=== PATIENT | male | born 1970 | race Caucasian/White ===

== ENCOUNTER 2023-04-27 07:14 | Inpatient (IN) | payer BC ==
[~2023-04-27] VITALS: Ht 185.4 cm; Wt 69.9 kg
--- NOTE | 2023-04-27 07:14 | NUR ---
Patient received in room 6; evaluated by MD immediately upon arrival. Patient placed on gurney, awaiting orders.
--- NOTE | 2023-04-27 07:24 | NUR ---
EKG DONE AT RN REQUEST DUE TO PT CHIEF COMPLAINT OF RAPID HEART RATE AND PAST HX OF A FIB
[2023-04-27] MEDS ORDERED: ASPIRIN 325 MG TABLET PO ONE (07:30)
[2023-04-27 07:39] VITALS: BP_SYST 112
[2023-04-27] MEDS ORDERED: APIXABAN 2.5 MG TABLET PO ONE (07:45)
[2023-04-27 07:48] LABS: BASOPHILS % (AUTO) 0.7 % (0.0-2.0); EOSINOPHILS # (AUTO) 0.2 K/uL (0.0-0.4); EOSINOPHILS % (AUTO) 3.2 % (0.0-4.0); HEMATOCRIT 43.2 % (36-54); HEMOGLOBIN 14.5 g/dL (14.0-18.0); LYMPHOCYTES % (AUTO) 16.7 % (20.5-51.5); MEAN CORPUSCULAR HEMOGLOBIN 31 pg (27-31); MEAN CORPUSCULAR HGB CONC 34 % (32-36); MEAN CORPUSCULAR VOLUME 92 fL (79.0-98.0); MONOCYTES # (AUTO) 0.5 K/uL (0.0-1.0); MONOCYTES % (AUTO) 8.6 % (1.7-9.3); NEUTROPHILS # (AUTO) 4.4 K/uL (1.8-7.7); NEUTROPHILS % (AUTO) 70.8 % (40.0-70.0); PLATELET COUNT (AUTO) 196 K/uL (130-430); RED BLOOD CELL COUNT(AUTO) 4.72 MIL/uL (4.2-6.2); RED CELL DISTRIBUTION WIDTH 13.6 % (9.0-15.0); WHITE BLOOD COUNT (AUTO) 6.2 K/uL (4.8-10.8)
[2023-04-27 08:00] LABS: CALCIUM 8.3 mg/dL (8.4-11.0); CREATININE 0.92 mg/dL (0.55-1.30)
[2023-04-27 08:05] LABS: TOTAL BILIRUBIN 0.5 mg/dL (0.0-1.0)
--- NOTE | 2023-04-27 09:00 | NUR ---
Patient calm and pleasant in conversation, patient concerned about continued AFIB activity; having had Afib for the last 5 yuears, he stated that although Afib under 100 BPM, it contines to disturb him as it is going from 60's to 90's at this time. Patient advised that he has recieved meds and as he is being admitted, Cadiologist will be here to see him after admission.
--- NOTE | 2023-04-27 09:42 | NUR ---
Admit bed requested Patient will be admitted to care of . Admitted to TELEMETRY unit. Diagnosis ATRIL FIBRILLATION Inpatient (Yes or No) YES Observation (Yes or No) NO Orientation concerns or request close to nursing station (Yes or No) NO Covid Status N/A On vent or bipap NO Isolation requirements NONE Needs a sitter NO From Home (Yes or if No enter name of facility) YES Requires Dialysis (Yes or No) NO Med Rec Completed (Yes of No) PENDING
--- NOTE | 2023-04-27 10:09 | NUR ---
COVID NASAL SWAB COLLECTED AT REQUEST OF NOMAN
[2023-04-27 10:31] LABS: BILIRUBIN,URINE NEGATIVE (NEGATIVE); BLOOD, URINE NEGATIVE (NEGATIVE); CLARITY/URINE CLEAR (CLEAR); COLOR,URINE YELLOW (YELLOW); GLUCOSE,URINE NEGATIVE (NEGATIVE); KETONES,URINE NEGATIVE (NEGATIVE); LEUKOCYTE ESTERASE ,URINE 1+ (NEGATIVE); NITRITE, URINE NEGATIVE (NEGATIVE); PROTEIN URINE NEGATIVE (NEGATIVE); UROBILINOGEN,URINE 0.2 (0.2-1.0)
--- NOTE | 2023-04-27 10:31 | NUR ---
I# 20 gauge angiocath placed to RH. Use of asceptic technique. Opsite placed over site. Blood return noted. Flushed with 10 cc of normal saline. No evidence of infiltration noted. Patient tolerated well.
[2023-04-27 10:39] LABS: BACTERIA,URINE FEW /HPF (None Seen); RBC,URINE NONE SEEN /HPF (0-3)
--- NOTE | 2023-04-27 10:46 | NUR ---
Patient prepared to go to floor at this time. NOMAN Robb and Ryan EMT taking patient to room 102B now.
--- NOTE | 2023-04-27 10:47 | NUR ---
Patient will be admitted to care of Dr. Ferrell. Admitted to Telemetry unit. Will go to room 102B. Belongings list completed. Complete and up to date summary report printed. SBAR report to be given at bedside with opportunity for questions.
--- NOTE | 2023-04-27 10:54 | NUR ---
Patient will be admitted to care of DR. MUNOZ. Admitted to TELEMETRY unit. Will go to room 102B. Belongings list completed. Complete and up to date summary report printed. SBAR report to be given at bedside with opportunity for questions. PT ENDORSED TO NOMAN COY.
--- NOTE | 2023-04-27 10:55 | NUR ---
Admission note: patient was transferred [facility] ER via [facility]. Report received from Radha. Patient ambulated to the bathroom. No pain or discomfort at this time. Vital checked. Will obtain the admission data and assessment and continue patient care.
[2023-04-27] MEDS ORDERED: LEUC5TAB PO (10:58)
[2023-04-27] MEDS ORDERED: CARV6.2554 PO (10:58)
[2023-04-27] MEDS ORDERED: METH25VI32 IJ (10:58)
[2023-04-27 11:00] VITALS: BP_SYST 118
[2023-04-27] MEDS ORDERED: SPIR25TA PO (11:02)
[2023-04-27] MEDS ORDERED: ROSU10TA2 PO (11:02)
[2023-04-27] MEDS ORDERED: LISI2.5T48 PO (11:02)
[2023-04-27] MEDS ORDERED: ASPI-1393 PO (11:03)
[2023-04-27] MEDS ORDERED: MULT-1117 PO (11:04)
[2023-04-27] MEDS ORDERED: OMEG-158 PO (11:04)
--- NOTE | 2023-04-27 11:32 | NUR ---
CONSULTATION PAGED/CALLED Reason for Consultation: ATRIAL FIBRILATION Person Who was Notified: DR. Migel MUNOZ Consulting Physician: DR. Migel MUNOZ MADE AWARE Corrective Therapy Aide Specialty: CARDIO Ordering Physician: DR. FERRER
[2023-04-27] MEDS ORDERED: CARVEDILOL 6.25 MG TABLET (COREG) PO ONE (12:15)
--- NOTE | 2023-04-27 12:33 | NUR ---
Note: home meds were input by pharmacy. Hold the coreg for now because patient already took the med this morning at home. Will start the next dose at 9pm. Patient is awake alert and made aware.
[2023-04-27] MEDS ORDERED: ACETAMINOPHEN 325 MG TABLET PO PRN ×2 (13:00→13:15)
[2023-04-27] MEDS ORDERED: HYDROcodone/ACETAMIN 10-325 MG TAB PO PRN (13:00)
[2023-04-27] MEDS ORDERED: LORazepam 2 MG/ML VIAL IVP PRN (13:00)
[2023-04-27] MEDS ORDERED: HYDROcodone/ACETAMIN 5-325 MG TAB (NORCO/ VICODIN) PO PRN (13:00)
[2023-04-27] MEDS ORDERED: ONDANSETRON HCL 4 MG/2 ML VIAL IVP PRN (13:00)
[2023-04-27] MEDS ORDERED: NALOXONE HCL 0.4 MG/ML AMP (NARCAN) IVP PRN ×2 (13:00)
[2023-04-27] MEDS ORDERED: *HEPARIN PER PHARMACY XX ONE (13:00)
--- NOTE | 2023-04-27 13:06 | NUR ---
Note: Dr. Migel Ferrell is here to see patient. New orders received.
[2023-04-27] MEDS ORDERED: OMEGA-3/DHA/EPA/FISH OIL 1 GM CAPSULE PO ONE (13:15)
[2023-04-27] MEDS: NORMAL SALINE 5 ML DISP.SYRIN IVF SCH ×2 (13:37→20:50)
--- NOTE | 2023-04-27 14:30 | NUR ---
Note: Pharmacist called and asked to start the heparin drip at 1800 due to patient already took Eliquis in ER in the morning.
[2023-04-27 14:39] LABS: FREE T4 (FREE THYROXINE) 0.9 ng/dL (0.6-1.6); THYROID STIMULATING HORMONE 0.94 uIu/mL (0.34-4.82)
[2023-04-27] MEDS ORDERED: HEPARIN SODIUM,PORCINE 3000 UNITS/0.6 ML BOLUS IVP PRN (18:00)
[2023-04-27] MEDS ORDERED: HEPARIN SODIUM,PORCINE 5,000 UNITS/ML VIAL IV ONE (18:00)
[2023-04-27] MEDS ORDERED: HEPARIN SODIUM,PORCINE 2000 UNITS/0.4 ML BOLUS IVP PRN (18:00)
[2023-04-27] MEDS ORDERED: HEPARIN 25,000 UNITS in 250 ML PREMIX IV PRN (18:00)
--- NOTE | 2023-04-27 19:33 | NUR ---
Closing note: Reported to Iveth. Patient is awake alert x4. No pain or discomfort at this time. Endorse to continue patient care.
[2023-04-27 20:00] VITALS: BP_SYST 107
[2023-04-27] MEDS: OMEGA-3/DHA/EPA/FISH OIL 1 GM CAPSULE PO SCH (20:47)
[2023-04-27] MEDS: CARVEDILOL 6.25 MG TABLET (COREG) PO SCH (20:48)
[2023-04-27] MEDS ORDERED: ROSUVASTATIN CALCIUM 5 MG/TAB (CRESTOR) PO SCH (21:00)
[2023-04-27] MEDS ORDERED: ATORVASTATIN 20 MG TABLET PO SCH (21:00)
[2023-04-28] VITALS: BP_SYST 91
--- NOTE | 2023-04-28 00:12 | NUR ---
SHIFT NOTES: Patient was received during change of shift. Patient is AA&Ox4 able to make needs known, denies any pain or distress at this time and has call light within reach. Chest rise is even and unlabored on RA and is on tele monitoring with noted A-FIB. Patient is ambulatory and continent. Patient has a PIV on the RH 20 patent and noted to be infusing. Patient is noted to be on a Heparin drip at 10ml/hr and as per report has a scheduled PTT draw for 0000 and heparin will be adjusted as per protocol. Patient is currently stable and safety measures are in place as per protocol. Will differ current care to AM shift nurse as per protocol. Addendum: 04/28/23 at 0018 by Eric Wan RN RN Care will be differed to Zeenat TINEO per change of assignment.
[2023-04-28 00:51] VITALS: BP_SYST 98
--- NOTE | 2023-04-28 02:25 | NUR ---
NOTES Patient resting in bed, no s/s distress noted. Heparin drip running at 10mL/hr. Latest PTT 63.7, no rate change indicated per protocol. Patient currently NPO. AOx4. Call light in reach, safety precautions in place.
[2023-04-28 05:17] LABS: BASOPHILS % (AUTO) 0.6 % (0.0-2.0); EOSINOPHILS # (AUTO) 0.3 K/uL (0.0-0.4); HEMATOCRIT 41.3 % (36-54); HEMOGLOBIN 13.9 g/dL (14.0-18.0); LYMPHOCYTES # (AUTO) 1.8 K/uL (1.0-5.5); LYMPHOCYTES % (AUTO) 28.5 % (20.5-51.5); MEAN CORPUSCULAR HEMOGLOBIN 31 pg (27-31); MEAN CORPUSCULAR HGB CONC 34 % (32-36); MEAN CORPUSCULAR VOLUME 91 fL (79.0-98.0); MONOCYTES # (AUTO) 0.7 K/uL (0.0-1.0); MONOCYTES % (AUTO) 10.9 % (1.7-9.3); NEUTROPHILS # (AUTO) 3.6 K/uL (1.8-7.7); PLATELET COUNT (AUTO) 186 K/uL (130-430); RED BLOOD CELL COUNT(AUTO) 4.56 MIL/uL (4.2-6.2); RED CELL DISTRIBUTION WIDTH 13.8 % (9.0-15.0); WHITE BLOOD COUNT (AUTO) 6.4 K/uL (4.8-10.8)
[2023-04-28 05:54] LABS: CALCIUM 8.2 mg/dL (8.4-11.0); CREATININE 0.99 mg/dL (0.55-1.30); PHOSPHORUS 4.2 mg/dL (2.7-4.5); TOTAL BILIRUBIN 0.9 mg/dL (0.0-1.0)
--- NOTE | 2023-04-28 06:00 | NUR ---
Patient ambulated to bathroom and HR on monitor showed up to 160s. Patient asymptomatic, denies dizziness or pain. BP 116/62, O2 sat 99% on room air. Upon return to bed, patient's HR decreased to 105. Patient agreed to call for assistance and stay in bed until after procedure this morning.
[2023-04-28] MEDS: NORMAL SALINE 5 ML DISP.SYRIN IVF SCH ×2 (06:07→15:50)
--- NOTE | 2023-04-28 07:42 | NUR ---
CLOSING Patient resting in bed, unlabored breathing on room air. Heparin drip running at 10 mL/hr. Patient updated on plan of care and is aware of GRAYSON and possible cardioversion scheduled for 1030 this morning. NPO after midnight. Call light in reach, bed low and locked.
[2023-04-28 07:45] VITALS: BP_SYST 95
--- NOTE | 2023-04-28 08:00 | NUR ---
Start of shift Pt resting in bed - tele unit attached and intact at this time. IV in right hand intact and patent. Bed in low position and side rails raised. Pt NPO for GRAYSON procedure at bedside. Call light within reach.,
[2023-04-28] MEDS: OMEGA-3/DHA/EPA/FISH OIL 1 GM CAPSULE PO SCH (09:00)
[2023-04-28] MEDS: CARVEDILOL 6.25 MG TABLET (COREG) PO SCH (09:00)
[2023-04-28] MEDS ORDERED: SPIRONOLACTONE 25 MG TABLET (ALDACTONE) PO SCH (09:00)
[2023-04-28] MEDS ORDERED: MULTIVITAMINS TAB 1 TABLET PO SCH (09:00)
[2023-04-28] MEDS ORDERED: ASPIRIN 81 MG TABLET(ECOTRIN) PO SCH (09:00)
[2023-04-28] MEDS ORDERED: lisinopriL 5 MG TABLET PO SCH (09:00)
[2023-04-28] MEDS ORDERED: LIDOCAINE 2% JELLY UROJECT 10 ML MM ONE (10:14)
[2023-04-28] MEDS ORDERED: BENZOCAINE 20% 0.5mL UD SPRAY MM ONE (10:14)
[2023-04-28] MEDS ORDERED: MIDAZOLAM HCL 5 MG/5 ML VIAL ONE (10:17)
[2023-04-28] MEDS ORDERED: fentaNYL CITRATE/PF 100 MCG/2 ML AMP ONE (10:17)
[2023-04-28 11:07] VITALS: BP_SYST 102
--- NOTE | 2023-04-28 11:15 | NUR ---
NOTE Pt's GRAYSON just completed by Dr Eliud Ferrell, started at 1030am. Pt under supervision on tele monitor at this time. Addendum: 04/28/23 at 1129 by Honey Kurtz RN Pt was given Versed 1.5mg and Fentanyl 75mg IVP, for GRAYSON procedure. Close observation being done at this time.
[2023-04-28 11:20] VITALS: BP_SYST 102
[2023-04-28] MEDS ORDERED: APIXABAN 2.5 MG TABLET PO ONE (12:45)
[2023-04-28] MEDS ORDERED: APIX5TAB PO (12:46)
--- NOTE | 2023-04-28 13:45 | NUR ---
Note Called Dr Lopez Ferrell, received order to DC Heparin Drip. Informed pt's HR at this time is 135. Eliquis PO just given to pt.
[2023-04-28 16:32] VITALS: BP_SYST 99
--- NOTE | 2023-04-28 17:00 | NUR ---
DISCHARGE Pt's HR has been 121-130 since Eliquis PO was given at 1330. Pt stated his normal HR is close to 150's. This was normal for him. Pt's tele unit was dc'd and returned to [employer]. Pt's IV in right hand was dc'd and site benign. Pt dressed in street clothes and packed all his belongings. Pt checked side table and drawers for belongings. Pt stable and was asymptomatic all shift. Pt's HR does increase when pt gets OOB to restroom. Pt given discharge paerwork and questions/concerns were answered at this time. Pt off the floor ambulating to front of the hospital with all his belongings and discharge paperwork. . Addendum: 04/28/23 at 1723 by Honey Kurtz RN pt was given back all his home medications that were in [facility].
[2023-04-28] MEDS ORDERED: APIXABAN 2.5 MG TABLET PO SCH (21:00)
== END 2023-04-28 17:05 | disposition home or self-care (01) | DRG 310 ==
LOC: SED 07:14 → STU 09:27
PROVIDERS: ADMIT Preventive Medicine Preventive Medicine/Occupational Environmental Medicine; ATTEND Preventive Medicine Preventive Medicine/Occupational Environmental Medicine
PROC: 5A2204Z Restoration of Cardiac Rhythm, Single (ICD-10-PCS; principal; 2023-04-27)
DX: I48.91 Unspecified atrial fibrillation (principal); I11.0 Hypertensive heart disease with heart failure; I50.9 Heart failure, unspecified; R73.9 Hyperglycemia, unspecified; E83.51 Hypocalcemia; B33.24 Viral cardiomyopathy; Z20.822 Contact with and (suspected) exposure to COVID-19
CPT/HCPCS: 36415; 71045; 80053; 81000; 83735; 83880; 84100; 84439; 84443; 84484; 85025; 85379; 85730-TC; 93005; 93306; 93312; 99291; G0378; J1644; J2250; J3010